=== PATIENT | female | born 1995 | race African-American/Black ===

== ENCOUNTER 2017-11-28 15:06 | Emergency (ER) | payer OTHER, SELFPAY ==
--- NOTE | 2017-11-28 16:24 | RAD ---
CHEST 2 VIEW: Date: 11/28/17 HISTORY: Chest pain. COMPARISON: None. FINDINGS: Lungs are clear. No pneumothorax or effusion. Cardiac silhouette and mediastinal contours within norm al limits. No acute osseous abnormality. IMPRESSION: No acute intrathoracic abnormality. POS: [facility]
== END 2017-11-28 17:15 | disposition home or self-care (01) ==
LOC: ERS 15:06
DX: M54.2 Cervicalgia (principal); R51 Headache; R07.89 Other chest pain; V89.2XXA Person injured in unspecified motor-vehicle accident, traffic, initial encounter
CPT/HCPCS: 71046

== ENCOUNTER 2018-01-10 13:03 | Emergency (ER) | payer BC, OTHER, SELFPAY ==
[2018-01-10] MEDS ORDERED: Dexamethasone 10 MG/ML VIAL ONE (13:19)
== END 2018-01-10 13:25 | disposition home or self-care (01) ==
LOC: ERS 13:03
DX: J30.2 Other seasonal allergic rhinitis (principal); Z71.6 Tobacco abuse counseling
CPT/HCPCS: 99406; J1100